=== PATIENT | female | born 1985 | race Caucasian/White ===

== ENCOUNTER 2016-06-05 22:27 | Emergency (ER) | payer MEDICAID | END 2016-06-06 00:45 | disposition home or self-care (01) | LOC: ER 22:27 | DX: S83.92XA Sprain of unspecified site of left knee, initial encounter (principal); X50.1XXA Overexertion from prolonged static or awkward postures, initial encounter; Y93.89 Activity, other specified; Y92.39 Other specified sports and athletic area as the place of occurrence of the external cause; Z79.899 Other long term (current) drug therapy ==